=== PATIENT | female | born 1940 | race American Indian/Alaskan Native ===

== ENCOUNTER 2019-02-22 15:51 | Emergency (ER) | payer MEDICARE ==
--- OUTSIDE RECORDS SUMMARY | 2019-02-22 15:58 | XMS REPORT | Continuity of Care Document ---
:1940 External Reference #:[id number] Author Name Bronwyn Holtnadercharo, [facility] Address [address] [place] [address] Problems Active Problems Provider Date Prediabetes Onset: 05/30/2018 Mitral valve stenosis Onset: 07/19/2015 Tubular adenoma of colon Onset: 07/13/2015 Chronic obstructive lung disease Onset: 12/09/2013 Inactive Problems Initial insomnia Onset: 08/23/2018 Inactive: 08/23/2018 Anxiety disorder Onset: 08/23/2018 Inactive: 08/23/2018 Umbilical hernia Onset: 08/02/2018 Inactive: 08/02/2018 Tinea cruris Onset: 08/02/2018 Inactive: 08/02/2018 Backache Onset: 08/02/2018 Inactive: 08/02/2018 Social History Type Date Description Comments Sex Unknown ETOH Use Occasionally consumes alcohol Tobacco Use Start: Unknown End: Patient is a former smoker Unknown Recreational Drug Use Denies Drug Use Recreational Drug Use Current medical marijuana use Smoking Status Reviewed: 12/13/18 Patient is a former smoker Allergies, Adverse Reactions, Alerts Active Allergies Reaction Severity Comments Date Bactrim DS(Rash) No Reaction Indicated 10/11/2018 Acetaminophen / Hydrocodone itching Moderate 10/11/2018 Tramadol Hydrochloride Rash, diarrhea Moderate 10/11/2018 Medications Active Medications SIG Qnty Indications Ordering Date Provider Sertraline HCL 1 daily oral; take 90tabs Maurilio Varma MD 08/02/2018 50mg with 100mg tabs to Tablets equal 150mg once daily Sertraline HCL 1 daily oral 90tabs Maurilio Varma MD 04/19/2018 100mg Tablets Furosemide 1 daily Oral 90tabs Unknown 03/08/2018 40mg Tablets Metoprolol Tartrate 1 daily Oral 30tabs Unknown 03/08/2018 50mg Tablets Rosuvastatin Calcium 1 daily Oral 90tabs Unknown 03/08/2018 20mg Tablets Montelukast Sodium Oral; Take 1 90tabs Unknown 01/17/2017 10mg Tablet By Mouth Tablets Every Day Omeprazole Oral; Take 1 90caps Unknown 01/17/2017 40mg Capsule By Mouth Capsules DR Every Day Spiriva Handihaler 1 daily 30caps Unknown 05/18/2015 Inhalation 18mcg Capsules Advair Diskus 1 twice each day 1units Unknown 09/28/2014 Inhalation 250-50mcg/Dose Aerosol Multivitamins 1 daily Oral 30caps Unknown 02/09/2014 Capsules Nitrostat Oral; Place One 100tabs Unknown 06/03/2007 0.4mg Tablets Tablet Under The Sub Tongue For Chest P Ain Every Five Minutes, Maximum Three Doses, Then Call Physician. Aspirin Ec 1 qd Oral 30tabs Unknown 12/04/2005 81mg Tablets Immunizations CPT Code Status Date Vaccine Lot # [id number] Given 11/06/2018 Tdap - Boostrix/Adacel [id number] Given 10/24/2018 Flu High Dose [id number] 71165 Given 04/29/2018 Shingrix - Shingles vaccine, Herpes Zoster 42941 Given 11/28/2017 Influenza Virus Vaccine, Quadrivalent, Split, Im Use 0.25ML 93471 Given 11/28/2017 Influenza Virus Vaccine, Quadrivalent, Split, Im Use 0.25ML 90024 Given 11/28/2017 Influenza Virus Vaccine, Quadrivalent, Split, Im Use 0.25ML 86789 Given 11/28/2017 Flu < 65 years 12030 Given 11/28/2017 Influenza Virus Vaccine, Quadrivalent, Split, Preservative Free 78657 Given 11/28/2017 Flumist 12469 Given 11/28/2017 Flu High Dose 84984 Given 11/28/2017 Influenza Virus Vaccine, Split, Preserv Free, Intradermal Use 45672 Given 11/19/2017 Influenza Virus Vaccine, Split, Preserv Free, Intradermal Use 13633 Given 11/19/2017 Flu High Dose 17588 Given 11/19/2017 Flumist 93194 Given 11/19/2017 Influenza Virus Vaccine, Quadrivalent, Split, Preservative Free 29990 Given 11/19/2017 Flu < 65 years 67070 Given 11/19/2017 Influenza Virus Vaccine, Quadrivalent, Split, Im Use 0.25ML 39788 Given 11/19/2017 Influenza Virus Vaccine, Quadrivalent, Split, Im Use 0.25ML 49746 Given 11/19/2017 Influenza Virus Vaccine, Quadrivalent, Split, Im Use 0.25ML 81359 Given 11/29/2016 Influenza Virus Vaccine, Split, Preserv Free, Intradermal Use 40794 Given 11/29/2016 Flu High Dose 02658 Given 11/29/2016 Flumist 13673 Given 11/29/2016 Influenza Virus Vaccine, Quadrivalent, Split, Preservative Free 07581 Given 11/29/2016 Flu < 65 years 87098 Given 11/29/2016 Influenza Virus Vaccine, Quadrivalent, Split, Im Use 0.25ML 10806 Given 11/29/2016 Influenza Virus Vaccine, Quadrivalent, Split, Im Use 0.25ML 80095 Given 11/29/2016 Influenza Virus Vaccine, Quadrivalent, Split, Im Use 0.25ML 34536 Given 10/29/2015 Influenza Virus Vaccine, Quadrivalent, Split, Im Use 0.25ML 84504 Given 10/29/2015 Influenza Virus Vaccine, Quadrivalent, Split, Im Use 0.25ML 27959 Given 10/29/2015 Influenza Virus Vaccine, Quadrivalent, Split, Im Use 0.25ML 30312 Given 10/29/2015 Flu < 65 years 07899 Given 10/29/2015 Influenza Virus Vaccine, Quadrivalent, Split, Preservative Free 29046 Given 10/29/2015 Flumist 13440 Given 10/29/2015 Flu High Dose 68663 Given 10/29/2015 Influenza Virus Vaccine, Split, Preserv Free, Intradermal Use 12733 Given 11/16/2014 Flu High Dose 04752 Given 11/16/2014 Flumist 37584 Given 11/16/2014 Influenza Virus Vaccine, Quadrivalent, Split, Preservative Free 10417 Given 11/16/2014 Flu < 65 years 09810 Given 11/16/2014 Influenza Virus Vaccine, Quadrivalent, Split, Im Use 0.25ML 74263 Given 11/16/2014 Influenza Virus Vaccine, Quadrivalent, Split, Im Use 0.25ML 22391 Given 11/16/2014 Influenza Virus Vaccine, Quadrivalent, Split, Im Use 0.25ML 51965 Given 08/04/2014 Prevnar 13 07455 Given 06/17/2014 Influenza Virus Vaccine, Quadrivalent, Split, Im Use 0.25ML 14306 Given 11/07/2012 Influenza Virus Vaccine, Quadrivalent, Split, Im Use 0.25ML 97220 Given 11/07/2012 Influenza Virus Vaccine, Quadrivalent, Split, Im Use 0.25ML 32676 Given 11/07/2012 Influenza Virus Vaccine, Quadrivalent, Split, Im Use 0.25ML 52159 Given 11/07/2012 Flu < 65 years 98849 Given 11/07/2012 Influenza Virus Vaccine, Quadrivalent, Split, Preservative Free 14280 Given 11/07/2012 Flumist 66566 Given 11/07/2012 Flu High Dose 99077 Given 11/01/2011 Flu High Dose 21350 Given 11/01/2011 Flumist 21457 Given 11/01/2011 Influenza Virus Vaccine, Quadrivalent, Split, Preservative Free 39969 Given 11/01/2011 Flu < 65 years 17880 Given 11/01/2011 Influenza Virus Vaccine, Quadrivalent, Split, Im Use 0.25ML 43053 Given 11/01/2011 Influenza Virus Vaccine, Quadrivalent, Split, Im Use 0.25ML 99317 Given 11/01/2011 Influenza Virus Vaccine, Quadrivalent, Split, Im Use 0.25ML 46632 Given 10/27/2010 Influenza Virus Vaccine, Quadrivalent, Split, Im Use 0.25ML 56379 Given 10/27/2010 Influenza Virus Vaccine Split Virus Intramuscular Use 0.5ML 02196 Given 11/24/2009 Influenza Virus Vaccine, Quadrivalent, Split, Im Use 0.25ML 19244 Given 11/24/2009 Influenza Virus Vaccine, Split Virus, Preservative Free Im 0.5ML 86319 Given 04/21/2009 Td >=7yrs [place] [address] Given 01/11/2009 H1N1 Immunization Admin (Intramuscular,Intranasal) Inc Counseling 42416 Given 01/11/2009 Influenza Virus Vaccine, Quadrivalent, Split, Im Use 0.25ML 96801 Given 12/10/2008 Zoster Shingles Vaccine For Subcutaneous Injection 32079 Given 12/09/2008 Pneumovax - for >=2years - PPSV23 12990 Given 12/11/2007 Influenza Virus Vaccine, Quadrivalent, Split, Im Use 0.25ML 95485 Given 12/11/2007 Influenza Virus Vaccine Split Virus Intramuscular Use 0.5ML 24448 Given 12/25/2006 Influenza Virus Vaccine, Quadrivalent, Split, Im Use 0.25ML 09434 Given 12/25/2006 Influenza Virus Vaccine Split Virus Intramuscular Use 0.5ML 29983 Given 01/12/2005 Influenza Virus Vaccine Split Virus Intramuscular Use 0.5ML Vital Signs Date Vital Result Comment 01/14/2019 11:59am BP Systolic 118 mmHg BP Diastolic 62 mmHg Weight 260.00 lb Heart Rate 77 /min Body Temperature 96.5 F O2 % BldC Oximetry 93 % 12/13/2018 10:50am BP Systolic 132 mmHg BP Diastolic 86 mmHg Weight 253.00 lb Heart Rate 77 /min Body Temperature 97.8 F O2 % BldC Oximetry 92 % Results Test Acquired Date Facility Test Result H/L Range Note CFM Urine 11/06/2018 [facility] Urine, Microalbumin 30mg Microalbumin/ ( )- - Creat R Urine, Creatinine, Random 300mg/dl Microalb/CR Ratio <30mg/g Laboratory 11/06/2018 [facility] Hemoglobin A1c 6.0 % High 4.0 -5.6 1 test finding [address] (Glyco HGB) [place] [address] [phone] Order 10/31/2018 [facility] Physical Right calf Therapy strain Evaluate And Treat Xray 10/31/2018 [facility] Ultrasound Hold and [address] Extremity call [place] [address] W/Doppler RT T [phone] Lymph# 08/20/2018 N2N/CCD Import Lymph# 1.2 K/cumm 1.0 - 4.9 K/cumm Lymph% 08/20/2018 N2N/CCD Import Lymph% 21.6 % 20 - 45 % MCH 08/20/2018 N2N/CCD Import MCH 26 uugm Low 27 - 31 uugm MCHC 08/20/2018 N2N/CCD Import MCHC 32 gm/dL 32 - 36 gm/dL MCV 08/20/2018 N2N/CCD Import MCV 81 fL 81 - 99 fL [place]# 08/20/2018 N2N/CCD Import [place]# 0.4 10-9/L 0 - 1.1 10-9/L [place]% 08/20/2018 N2N/CCD Import [place]% 6.4 % 0 - 10 % Neut# 08/20/2018 N2N/CCD Import Neut# 3.9 K/cumm 2.2 - 7.6 K/cumm Platelets 08/20/2018 N2N/CCD Import Platelets 206 K/cumm 140 - 440 K/cumm Potassium 08/20/2018 N2N/CCD Import Potassium 4.2 mmol/L Protein, Total 08/20/2018 N2N/CCD Import Protein, Total 6.9 gm/dL RBC 08/20/2018 N2N/CCD Import RBC 5.2 M/cumm 4.2 - 5.4 M/cumm RDW 08/20/2018 N2N/CCD Import RDW 13.9 % 11.5 - 14.5 % Sodium 08/20/2018 N2N/CCD Import Sodium 141 mmol/L 137 - 145 mmol/L Urea Nitrogen 08/20/2018 N2N/CCD Import Urea Nitrogen 13 mg/dL WBC 08/20/2018 N2N/CCD Import WBC 5.6 K/cumm 4.8 - 10.8 K/cumm Alk Phos 08/20/2018 N2N/CCD Import Alk Phos 123 IU/L Albumin 08/20/2018 N2N/CCD Import Albumin 4.3 gm/dL Alt 08/20/2018 N2N/CCD Import Alt 47 IU/L Anion Gap 08/20/2018 N2N/CCD Import Anion Gap 16 _ Ast 08/20/2018 N2N/CCD Import Ast 38 IU/L Baso# 08/20/2018 N2N/CCD Import Baso# 0.1 K/cumm 0 - 0.2 K/cumm Baso% 08/20/2018 N2N/CCD Import Baso% 0.9 % 0 - 2 % Bilirubin 08/20/2018 N2N/CCD Import Bilirubin 0.3 mg/dL 0.2 - 1.3 Total Total mg/dL Calcium 08/20/2018 N2N/CCD Import Calcium 9.6 mg/dL Chloride 08/20/2018 N2N/CCD Import Chloride 100 mmol/L 98 - 107 mmol/L Co2 08/20/2018 N2N/CCD Import Co2 25 mmol/L 22 - 31 mmol/L Creatinine 08/20/2018 N2N/CCD Import Creatinine 0.93 mg/dL CRP 08/20/2018 N2N/CCD Import CRP 3 _ Eosin# 08/20/2018 N2N/CCD Import Eosin# 0.1 K/cumm 0 - .5 K/cumm Eosin% 08/20/2018 N2N/CCD Import Eosin% 1.2 % 0 - 5 % GFR Afr Amer 08/20/2018 N2N/CCD Import GFR Afr Amer 69 _ 60 - 150 GFR Non Afr 08/20/2018 N2N/CCD Import GFR Non Afr 60 _ 60 - 150 Amer Amer Glucose 08/20/2018 N2N/CCD Import Glucose 97 mg/dL 60 - 100 MG/DL Hematocrit 08/20/2018 N2N/CCD Import Hematocrit 42 % 35 - 42 % Hemoglobin 08/20/2018 N2N/CCD Import Hemoglobin 13.4 gm/dl 1 Therapeutic target for the treatment of diabetes mellitus patients is <7% HBA1C, and in selective patients <6.0%. Please refer to [place] [employer] diabetic care guidelines for further information. Procedures Date Code Description Status 11/06/2018 32791 Brief Emotional/Behav Assessment W/ Scoring Doc Per Completed Standard Inst 08/23/2018 22779 Brief Emotional/Behav Assessment W/ Scoring Doc Per Completed Standard Inst Medical Devices Description No Information Available Encounters Type Date Location Provider Dx Diagnosis Office Visit 01/14/2019 11:45a KATHRYN Charlton R63.5 Abnormal weight gain R05 Cough Office Visit 12/13/2018 10:45a Rosy Varma MD M54.5 Low back pain R73.03 Prediabetes Office Visit 11/06/2018 2:15p ELLIS Varma MD Z00.00 Encntr for general adult medical exam w/o abnormal findings Z68.42 Body mass index (BMI) 45.0-49.9, adult I10 Essential (primary) hypertension Z23 Encounter for immunization Z13.31 Encounter for screening for depression R73.03 Prediabetes Office Visit 10/31/2018 10:30a KATHRYN Mina M79.604 Pain in right leg Office Visit 10/24/2018 11:30a KATHRYN Charlton M79.661 Pain in right lower leg Z23 Encounter for immunization Assessments Date Code Description Provider 01/14/2019 R63.5 Abnormal weight gain Bronwyn Winkler, [facility] 01/14/2019 R05 Cough Bronwyn JonathonnadercharoKATHRYN 12/13/2018 M54.5 Low back pain Maurilio Varma MD 12/13/2018 R73.03 Prediabetes Maurilio Varma MD 11/06/2018 Z00.00 Encounter for general adult medical examination Maurilio Varma MD without abnormal findings 11/06/2018 Z68.42 Body mass index (BMI) 45.0-49.9, adult Maurilio Varma MD 11/06/2018 I10 Essential (primary) hypertension Maurilio Varma MD 11/06/2018 Z23 Encounter for immunization Maurilio Varma MD 11/06/2018 Z13.31 Encounter for screening for depression Maurilio Varma MD 11/06/2018 R73.03 Prediabetes Maurilio Varma MD 10/31/2018 M79.604 Pain in right leg Bronwyn Winkler, [facility] 10/24/2018 M79.661 Pain in right lower leg Bronwyn Peterson, [facility] 10/24/2018 Z23 Encounter for immunization Bronwyn PetersonKATHRYN Plan of Treatment 01/14/2019 - Bronwyn Winkler, FNPR63.5 Abnormal weight gainComments:Lungs clear. No sign of fluid overload today. Due to weight gain disc. 4 days of 40 mg lasix 2 x daily then return to daily. Reviewed SE. Disc. following up in office in new, worsening symptoms or no improvement with above. Instructed to call Dr. Linn office and update them as well.R05 CoughComments:Use rescue inhaler 4 x daily as needed. Functional Status Description No Information Available Mental Status Description No Information Available Referrals Refer to Reason for Referral Status Appt Date Patient's, Choice Prediabetes classes Created Patient's, Choice Right popiteal cyst acute with pain. Found on US. Sent
--- NOTE | 2019-02-22 16:37 | ED ---
Head Injury - HPI Summary HPI Summary: 78-year-old female presents with head injuries today. She states that she slipped on ice and fell backwards on her head. No loss consciousness. She saw stars right afterwards. Denies any nausea or vomiting. She states her headache has been increasing. She is not on any blood thinners. Is on daily aspirin. She has a history of chronic neck and back issues. Denies any neck pain. No change in her chronic back pain. States she only landed on her head. no other injury. this was a mechanical fall. denies any chest pain or SOB. - History Of Current Complaint Chief Complaint: EDHeadInjury Stated Complaint: HEAD INJ FROM FALL PER PT Time Seen by Provider: 02/22/19 16:14 Pain Intensity: 4 - Allergies/Home Medications Allergies/Adverse Reactions: Allergies Allergy/AdvReac Type Severity Reaction Status Date / Time MS Sulfa Drugs [Sulfa Drugs] Allergy Intermediate Unknown Verified 10/26/14 14: 35 Reaction Details MS Codeine [Codeine] Allergy Anxiety Verified 10/26/14 14:35 MS Hydrocodone [Hydrocodone] Allergy Insomnia Verified 10/26/14 14:35 MS Tramadol [Tramadol] Allergy Itching Verified 10/26/14 14:35 PMH/Surg Hx/FS Hx/Imm Hx Endocrine/Hematology History: Denies: Hx Anticoagulant Therapy, Hx Diabetes, Hx Thyroid Disease Cardiovascular History: Reports: Hx Hypertension, Other Cardiovascular Problems/ Disorders - Hx low BP Denies: Hx Hypercholesterolemia, Hx Pacemaker/ICD, Hx Peripheral Vascular Disease Respiratory History: Reports: Hx Asthma - PRN INHALER, Hx Chronic Bronchitis, Hx Chronic Obstructive Pulmonary Disease (COPD), Hx Sleep Apnea - current CPAP user, improving compliance, Other Respiratory Problems/Disorders - Pt desats with exertion CPAP at night and supplemental O2 GI History: Reports: Other GI Disorders - umbilical hernia Denies: Hx Cirrhosis History: Denies: Hx Renal Disease Musculoskeletal History: Reports: Hx Orthopedic Injury - torn (right) ACL, (left ) thumb fx d/t fall 02/2013, Other Musculoskeletal History - Osteoarthritis, L shoulder replacement 2008 Denies: Hx Arthritis, Hx Rheumatoid Arthritis, Hx Osteoporosis Sensory History: Denies: Hx Cataracts, Hx Contacts or Glasses, Hx Glaucoma, Hx Hearing Aid Opthamlomology History: Denies: Hx Cataracts, Hx Contacts or Glasses, Hx Glaucoma Neurological History: Reports: Other Neuro Impairments/Disorders - PAIN CLINIC PATIENT Denies: Hx Headaches, Hx Seizures, Hx Transient Ischemic Attacks (TIA) Psychiatric History: Denies: Hx Anxiety, Hx Depression, Hx Panic Disorder - Surgical History Surgery Procedure, Year, and Place: CARDIAC STENTS 09/2005 (CARD IN COPY). CATARACTS. LEFT SHOULDER REPLACEMENT 2010. LUMBAR LAMINECTOMY AND FUSION L4- L5 2009 Infectious Disease History: No Infectious Disease History: Denies: Hx Hepatitis, Traveled Outside the [place] in Last 30 Days - Family History Known Family History: Positive: Non-Contributory - Social History Alcohol Use: Occasionally Alcohol Amount: 2-3 x weekly 1-2 per week Hx Substance Use: No Substance Use Type: Reports: None Hx Tobacco Use: No Smoking Status (MU): Former Smoker Type: Cigarettes Have You Smoked in the Last Year: No Review of Systems Negative: Fever Negative: Chest Pain Negative: Shortness Of Breath Positive: Headache All Other Systems Reviewed And Are Negative: Yes Physical Exam Triage Information Reviewed: Yes Vital Signs On Initial Exam: Initial Vitals Temp Pulse Resp BP Pulse Ox 98.2 F 72 18 114/73 93 02/22/19 15:53 02/22/19 15:53 02/22/19 15:53 02/22/19 15:53 02/22/19 15:53 Vital Signs Reviewed: Yes Appearance: Positive: Well-Appearing Skin: Positive: Warm, Dry Head/Face: Positive: Normal Head/Face Inspection, Other - contusion noted to back of head Eyes: Positive: Normal, EOMI, BISI, Conjunctiva Clear ENT: Positive: Pharynx normal, TMs normal Neck: Positive: Other: - nontender neck, full ROM of neck Respiratory/Lung Sounds: Positive: Clear to Auscultation, Breath Sounds Present Cardiovascular: Positive: Normal, RRR Abdomen Description: Positive: Nontender, Soft Bowel Sounds: Positive: Present Musculoskeletal: Positive: Normal Neurological: Positive: Normal Psychiatric: Positive: Normal Procedures - Sedation Patient Received Moderate/Deep Sedation with Procedure: No Diagnostics - Vital Signs Vital Signs Temp Pulse Resp BP Pulse Ox 02/22/19 15:53 98.2 F 72 18 114/73 93 - Laboratory Lab Statement: Any lab studies that have been ordered have been reviewed, and results considered in the medical decision making process. - CT brain CT Interpretation Completed By: Radiologist Summary of CT Findings: IMPRESSION: 1. NO EVIDENCE FOR ACUTE INTRACRANIAL ABNORMALITY.. 2. HEMATOMA IN THE SCALP IN THE POSTERIOR RIGHT PARIETAL REGION, NO FRACTURE IS SEEN. Head Injury Course/Dx Course Of Treatment: 78-year-old female presents with head injuries today. She states that she slipped on ice and fell backwards on her head. No loss consciousness. She saw stars right afterwards. Denies any nausea or vomiting. She states her headache has been increasing. She is not on any blood thinners. Is on daily aspirin. She has a history of chronic neck and back issues. Denies any neck pain. No change in her chronic back pain. States she only landed on her head. no other injury. this was a mechanical fall. denies any chest pain or SOB. On exam has normal neuro exam. has contusion noted to head. CT of the brain shows hematoma. no fracture. gave head injury precautions. will have follow up with primary. patient understand and agrees with plan. - Diagnoses Differential Diagnosis/HQI/PQRI: Concussion Without LOC, Contusion, Intracranial Bleed Provider Diagnoses: Fall, Head injury, Hematoma of scalp Discharge ED - Sign-Out/Discharge Documenting (check all that apply): Patient Departure - Discharge Plan Condition: Good Disposition: HOME Patient Education Materials: Head Injury (ED) Referrals: Maurilio Varma MD [Primary Care Provider] - Additional Instructions: Place ice on area as needed Take Tylenol for headache every 6 hours Modify activities as tolerated Follow up with primary within 5 days Return to ED if develop any new or worsening symptoms - Billing Disposition and Condition Condition: GOOD Disposition: Home - Attestation Statements Provider Attestation: AP view do not see
[2019-02-22] MEDS ORDERED: Acetaminophen TAB* 325 MG PO ONE (17:01)
[2019-02-22 18:01] VITALS: BP 152/84
== END 2019-02-22 17:58 | disposition home or self-care (01) ==
LOC: ED 15:51
DX: S09.90XA Unspecified injury of head, initial encounter (principal); S00.03XA Contusion of scalp, initial encounter; R51 Headache; W19.XXXA Unspecified fall, initial encounter; Y92.9 Unspecified place or not applicable
CPT/HCPCS: 70450; 99282; A9270-GY

== ENCOUNTER 2020-03-25 11:54 | Inpatient (IN) ==
[2020-03-25] MEDS ORDERED: NS 0.9% 1000 ml BAG 1,000 ML IV ONE (13:55)
[2020-03-25 14:46] LABS: ABS Lymphocytes 0.4 10^3/ul (1.0-4.8); ABS Monocytes 0.5 10^3/ul (0-0.8); ABS Neutrophils 13.5 10^3/ul (1.5-7.7); Hematocrit 46 % (35-47); Hemoglobin 15.7 g/dL (12.0-16.0); Lymphocyte % 2.8 %; Mean Corpuscular HGB Conc 34 g/dL (31-36); Mean Corpuscular Hemoglobin 28 pg (27-31); Mean Corpuscular Volume 82 fL (80-97); Mean Platelet Volume 7.3 fL (7.4-10.4); Platelet Count 158 10^3/uL (150-450); Red Blood Count 5.59 10^6 /uL (3.70-4.87); Red Cell Distribution Width 14 % (10-15); White Blood Count 14.4 10^3/uL (3.5-10.8)
[2020-03-25] MEDS ORDERED: Midazolam 2 mg/2 ml VIAL 1 mg/ml 2 ml VIAL (2 mg) ONE (14:57)
[2020-03-25] MEDS ORDERED: fentaNYL 100 mcg/2 ml 50 MCG/ML VIAL ONE (14:58)
[2020-03-25] MEDS ORDERED: Propofol 10 MG/ML 20 ML BTL ONE (15:03)
[2020-03-25] MEDS ORDERED: Lidocaine 2% PF 5 ML VIAL ONE ×2 (15:03→17:52)
[2020-03-25] MEDS ORDERED: Succinylcholine 200 mg VIAL 20 mg/ml 10 ml VIAL (200 mg) ONE (15:03)
[2020-03-25 15:06] LABS: Troponin I 0.03 ng/mL (<0.03)
[2020-03-25] MEDS ORDERED: cefTRIAXone 1 gm/50 mL NS BAG 1 GM/50 ML BAG IV ONE (15:08)
[2020-03-25] MEDS ORDERED: metroNIDAZOLE IV 500 MG/100ML 500 MG/100 ML BAG IVPB ONE (15:08)
[2020-03-25 15:14] LABS: ALT 39 U/L (7-52); AST 26 U/L (13-39); Albumin 4.4 g/dL (3.2-5.2); Albumin/Globulin Ratio 1.5 (1-3); Alkaline Phosphatase 86 U/L (34-104); Anion Gap 11 mmol/L (2-11); BUN/Creatinine Ratio 18.3 (8-20); Blood Urea Nitrogen 19 mg/dL (6-24); CO2 Carbon Dioxide 27 mmol/L (22-32); Calcium 9.5 mg/dL (8.6-10.3); Chloride 104 mmol/L (101-111); EGFR Non-African American 51.3 (>60); Glucose 166 mg/dL (70-100); Potassium 4.1 mmol/L (3.5-5.0); Sodium 142 mmol/L (135-145); Total Protein 7.4 g/dL (6.4-8.9)
[2020-03-25] MEDS ORDERED: Etomidate 20 mg/10 ml 2 MG/ML 10 ml VIAL ONE (15:24)
[2020-03-25] MEDS ORDERED: cefTRIAXone 1 gm/50 mL NS BAG 1 GM/50 ML BAG ONE (15:43)
[2020-03-25] MEDS ORDERED: Dexmedetomidine 200 mcg/2 ml 2 ml VIAL (200 mcg) ONE (16:04)
[2020-03-25] MEDS ORDERED: Dexamethasone IV 4 MG/ML VIAL 1 ml VIAL ONE (16:21)
[2020-03-25] MEDS ORDERED: Ondansetron 4 mg VIAL 2 MG/ML 2 ml VIAL ONE (16:21)
[2020-03-25] MEDS ORDERED: Rocuronium 50 mg VIAL 10 mg/ml 5 ml VIAL (50 mg) ONE (16:24)
[2020-03-25] MEDS ORDERED: NS 0.9% 1000 ml BAG 1,000 ML IV SCH (16:30)
[2020-03-25] MEDS ORDERED: Phenylephrine 40 mcg/mL 10mL (400mcg) SYRINGE ONE ×2 (16:32→16:54)
[2020-03-25] MEDS ORDERED: Phenylephrine IV 10 MG/ML 1 ml VIAL ONE (16:54)
[2020-03-25] MEDS ORDERED: Pantoprazole VIAL 40 MG VIAL IV SCH (17:00)
[2020-03-25] MEDS ORDERED: EPHEDrine (Pressors) 50 MG/ML VIAL ONE (17:04)
[2020-03-25] MEDS ORDERED: Hydrocortisone INJ 250 MG VIAL IV ONE (17:59)
[2020-03-25] MEDS ORDERED: Phenylephrine IV 50 MG in NS 0.9% 250 ml 245 ML IV SCH (19:00)
[2020-03-25] MEDS ORDERED: Albuterol/Ipratropium NEB.SOL (2.5/0.5 MG) 3 ML NEB.SOLN INH SCH (19:00)
[2020-03-25] MEDS: Enoxaparin 40 MG/0.4 ML SYR SUBCUT SCH (20:25)
[2020-03-25] MEDS: Albuterol/Ipratropium NEB.SOL (2.5/0.5 MG) 3 ML NEB.SOLN INH SCH (20:31)
[2020-03-25] MEDS: Azithromycin 500 mg/250 ml NS 500 MG/250 ML BAG IVPB SCH (20:59)
[2020-03-25] MEDS: Pantoprazole VIAL 40 MG VIAL IV SCH (21:34)
[2020-03-25] MEDS: Mometasone/Formoter 100/5 MDI INH SCH (21:36)
[2020-03-26] MEDS: Albuterol/Ipratropium NEB.SOL (2.5/0.5 MG) 3 ML NEB.SOLN INH SCH ×4 (03:23→19:33)
[2020-03-26 04:26] LABS: Calcium 8.3 mg/dL (8.6-10.3); Magnesium 1.8 mg/dL (1.9-2.7)
[2020-03-26 04:31] LABS: BUN/Creatinine Ratio 21.3 (8-20); EGFR African American 83.9 (>60); EGFR Non-African American 69.4 (>60); Phosphorus 2.7 mg/dL (2.5-5.0)
[2020-03-26] MEDS ORDERED: Magnesium Sulfate 2 gm BAG 2 GM/50 ML BAG IVPB ONE ×2 (04:32→06:34)
[2020-03-26] MEDS: Hydrocortisone INJ 100 MG/2ML 2 ML VIAL IV SCH ×2 (05:35→14:31)
[2020-03-26 05:58] LABS: ABS Lymphocytes 0.3 10^3/ul (1.0-4.8); ABS Monocytes 0.1 10^3/ul (0-0.8); ABS Neutrophils 12.4 10^3/ul (1.5-7.7); Hematocrit 39 % (35-47); Hemoglobin 13.2 g/dL (12.0-16.0); Lymphocyte % 2.7 %; Mean Corpuscular HGB Conc 34 g/dL (31-36); Mean Corpuscular Hemoglobin 28 pg (27-31); Mean Corpuscular Volume 83 fL (80-97); Mean Platelet Volume 7.2 fL (7.4-10.4); Platelet Count 147 10^3/uL (150-450); Red Blood Count 4.66 10^6 /uL (3.70-4.87); Red Cell Distribution Width 14 % (10-15); White Blood Count 12.9 10^3/uL (3.5-10.8)
[2020-03-26 06:36] LABS: BUN/Creatinine Ratio 20.8 (8-20); Calcium 8.3 mg/dL (8.6-10.3); EGFR African American 87.7 (>60); EGFR Non-African American 72.5 (>60); Magnesium 1.9 mg/dL (1.9-2.7); Phosphorus 2.5 mg/dL (2.5-5.0); Potassium 3.7 mmol/L (3.5-5.0)
[2020-03-26] MEDS: SPIRIVA Respimat (tiotropium) 2.5 mcg/inh Inhaler INH SCH (07:08)
[2020-03-26] MEDS: Mometasone/Formoter 100/5 MDI INH SCH ×2 (07:08→19:34)
[2020-03-26] MEDS ORDERED: Potassium Chlor 20 meq TAB.ER PO ONE (08:13)
[2020-03-26] MEDS: Vitamin THERAPEUTIC TAB PO SCH (08:57)
[2020-03-26] MEDS: Pantoprazole VIAL 40 MG VIAL IV SCH ×2 (08:57→22:35)
[2020-03-26] MEDS ORDERED: FLUTICASONE/UMECLIDIN/VILANTER 1 PUFF MDI INH SCH (09:00)
[2020-03-26] MEDS ORDERED: Furosemide 20 mg/2 ml IV VIAL IV SLOW PU ONE ×2 (10:39→14:21)
[2020-03-26 11:25] LABS: INR 1.2 (0.82-1.09)
[2020-03-26] MEDS ORDERED: methylPREDNISolone SOD 40 mg/ml 1 ml VIAL IV SCH (16:00)
[2020-03-26] MEDS: cefTRIAXone 1 gm/50 mL NS BAG 1 GM/50 ML BAG IVPB SCH (18:27)
[2020-03-26] MEDS: Enoxaparin 40 MG/0.4 ML SYR SUBCUT SCH (18:27)
[2020-03-26] MEDS: Azithromycin 500 mg/250 ml NS 500 MG/250 ML BAG IVPB SCH (22:34)
[2020-03-26] MEDS: methylPREDNISolone SOD 40 mg/ml 1 ml VIAL IV SCH (22:35)
[2020-03-27] MEDS: Albuterol/Ipratropium NEB.SOL (2.5/0.5 MG) 3 ML NEB.SOLN INH SCH ×4 (00:47→20:12)
[2020-03-27 06:20] LABS: Hematocrit 37 % (35-47); Hemoglobin 12.6 g/dL (12.0-16.0); Mean Corpuscular HGB Conc 34 g/dL (31-36); Mean Corpuscular Hemoglobin 29 pg (27-31); Mean Corpuscular Volume 84 fL (80-97); Mean Platelet Volume 7.5 fL (7.4-10.4); Platelet Count 156 10^3/uL (150-450); Red Blood Count 4.42 10^6 /uL (3.70-4.87); Red Cell Distribution Width 14 % (10-15); White Blood Count 9.3 10^3/uL (3.5-10.8)
[2020-03-27 06:32] LABS: BUN/Creatinine Ratio 24.4 (8-20); Calcium 8.6 mg/dL (8.6-10.3); EGFR African American 81.6 (>60); EGFR Non-African American 67.4 (>60); Magnesium 2.3 mg/dL (1.9-2.7); Potassium 3.8 mmol/L (3.5-5.0)
[2020-03-27] MEDS: SPIRIVA Respimat (tiotropium) 2.5 mcg/inh Inhaler INH SCH (08:51)
[2020-03-27] MEDS: Mometasone/Formoter 100/5 MDI INH SCH ×2 (08:51→20:12)
[2020-03-27] MEDS: Vitamin THERAPEUTIC TAB PO SCH (09:07)
[2020-03-27] MEDS: methylPREDNISolone SOD 40 mg/ml 1 ml VIAL IV SCH ×2 (09:10→21:19)
[2020-03-27] MEDS: Pantoprazole VIAL 40 MG VIAL IV SCH ×2 (09:10→21:22)
[2020-03-27] MEDS: cefTRIAXone 1 gm/50 mL NS BAG 1 GM/50 ML BAG IVPB SCH (16:45)
[2020-03-27] MEDS: Enoxaparin 40 MG/0.4 ML SYR SUBCUT SCH (16:45)
[2020-03-27] MEDS: Azithromycin 500 mg/250 ml NS 500 MG/250 ML BAG IVPB SCH (21:24)
[2020-03-28] MEDS: Albuterol/Ipratropium NEB.SOL (2.5/0.5 MG) 3 ML NEB.SOLN INH SCH ×4 (00:42→19:40)
[2020-03-28] MEDS ORDERED: Senna TAB 8.6 mg TAB PO PRN (02:02)
[2020-03-28] MEDS ORDERED: Polyethylene Glycol 3350 17 GM PACKET PO PRN (02:02)
[2020-03-28 06:39] LABS: Hematocrit 39 % (35-47); Hemoglobin 12.5 g/dL (12.0-16.0); Mean Corpuscular HGB Conc 33 g/dL (31-36); Mean Corpuscular Hemoglobin 28 pg (27-31); Mean Corpuscular Volume 87 fL (80-97); Mean Platelet Volume 7.8 fL (7.4-10.4); Platelet Count 150 10^3/uL (150-450); Red Blood Count 4.42 10^6 /uL (3.70-4.87); Red Cell Distribution Width 15 % (10-15); White Blood Count 7.2 10^3/uL (3.5-10.8)
[2020-03-28 06:46] LABS: BUN/Creatinine Ratio 28.2 (8-20); Calcium 8.5 mg/dL (8.6-10.3); EGFR African American 86.4 (>60); EGFR Non-African American 71.4 (>60); Potassium 4.1 mmol/L (3.5-5.0)
[2020-03-28] MEDS: Benzocaine/Menthol LOZ PO PRN ×2 (07:22→15:42)
[2020-03-28] MEDS: SPIRIVA Respimat (tiotropium) 2.5 mcg/inh Inhaler INH SCH (07:34)
[2020-03-28] MEDS: Mometasone/Formoter 100/5 MDI INH SCH ×2 (07:34→19:40)
[2020-03-28] MEDS: Vitamin THERAPEUTIC TAB PO SCH (08:54)
[2020-03-28] MEDS: Pantoprazole VIAL 40 MG VIAL IV SCH (08:54)
[2020-03-28] MEDS: Magnesium Hydroxide LIQ 30 ML UDC PO SCH ×2 (10:37→20:52)
[2020-03-28] MEDS: methylPREDNISolone SOD 40 mg/ml 1 ml VIAL IV SCH ×2 (10:37→20:54)
[2020-03-28] MEDS: cefTRIAXone 1 gm/50 mL NS BAG 1 GM/50 ML BAG IVPB SCH (15:42)
[2020-03-28] MEDS: Enoxaparin 40 MG/0.4 ML SYR SUBCUT SCH (17:15)
[2020-03-29] MEDS: Albuterol/Ipratropium NEB.SOL (2.5/0.5 MG) 3 ML NEB.SOLN INH SCH ×2 (01:13→08:50)
[2020-03-29] MEDS: SPIRIVA Respimat (tiotropium) 2.5 mcg/inh Inhaler INH SCH (07:40)
[2020-03-29] MEDS: Mometasone/Formoter 100/5 MDI INH SCH (07:40)
[2020-03-29] MEDS ORDERED: Albuterol/Ipratropium NEB.SOL (2.5/0.5 MG) 3 ML NEB.SOLN INH PRN (07:46)
[2020-03-29 08:12] LABS: Calcium 8.6 mg/dL (8.6-10.3); Potassium 3.9 mmol/L (3.5-5.0)
[2020-03-29 08:18] LABS: BUN/Creatinine Ratio 23.8 (8-20); EGFR African American 83.9 (>60); EGFR Non-African American 69.4 (>60)
[2020-03-29 08:19] LABS: ABS Lymphocytes 0.6 10^3/ul (1.0-4.8); ABS Monocytes 0.4 10^3/ul (0-0.8); ABS Neutrophils 5.8 10^3/ul (1.5-7.7); Hematocrit 37 % (35-47); Hemoglobin 12.8 g/dL (12.0-16.0); Lymphocyte % 8.8 %; Mean Corpuscular HGB Conc 35 g/dL (31-36); Mean Corpuscular Hemoglobin 29 pg (27-31); Mean Corpuscular Volume 83 fL (80-97); Mean Platelet Volume 7.3 fL (7.4-10.4); Nucleated Red Blood Cells % 0.1; Platelet Count 170 10^3/uL (150-450); Red Blood Count 4.46 10^6 /uL (3.70-4.87); Red Cell Distribution Width 14 % (10-15); White Blood Count 6.8 10^3/uL (3.5-10.8)
[2020-03-29] MEDS: Magnesium Hydroxide LIQ 30 ML UDC PO SCH (09:03)
[2020-03-29] MEDS: methylPREDNISolone SOD 40 mg/ml 1 ml VIAL IV SCH ×2 (09:03→09:46)
[2020-03-29] MEDS: Vitamin THERAPEUTIC TAB PO SCH (09:03)
[2020-03-29 11:18] VITALS: BP 136/79
== END 2020-03-29 15:53 | disposition home or self-care (01) | DRG 393 ==
LOC: ED 11:54 → ICU 18:27 → SSU 03-26 16:41
PROVIDERS: ADMIT Internal Medicine; ATTEND Internal Medicine
PROC: O.GIEGD (2020-03-25 14:40)

== ENCOUNTER 2021-09-20 13:48 | Inpatient (IN) ==
[2021-09-20] MEDS ORDERED: fentaNYL 100 mcg/2 ml 50 MCG/ML VIAL IV SLOW PU PRN (15:47)
[2021-09-20] MEDS ORDERED: fentaNYL 100 mcg/2 ml 50 MCG/ML VIAL ONE (15:52)
[2021-09-20 18:58] LABS: ABS Lymphocytes 0.6 10^3/ul (1.0-4.8); ABS Monocytes 0.5 10^3/ul (0-0.8); ABS Neutrophils 6.6 10^3/ul (1.5-7.7); Eosinophil % 0.1 %; Hematocrit 37 % (35-47); Hemoglobin 12.4 g/dL (12.0-16.0); Lymphocyte % 8.2 %; Mean Corpuscular HGB Conc 34 g/dL (31-36); Mean Corpuscular Hemoglobin 27 pg (27-31); Mean Corpuscular Volume 81 fL (80-97); Platelet Count 145 10^3/uL (150-450); Red Blood Count 4.54 10^6 /uL (3.70-4.87); Red Cell Distribution Width 15 % (10-15); White Blood Count 7.8 10^3/uL (3.5-10.8)
[2021-09-20] MEDS ORDERED: Albuterol HFA INHALER 8 gm MDI INH PRN (19:19)
[2021-09-20] MEDS ORDERED: Ondansetron 4 mg VIAL 2 MG/ML 2 ml VIAL IV PRN (19:24)
[2021-09-20 19:45] LABS: Albumin 3.7 g/dL (3.2-5.2); Albumin/Globulin Ratio 1.6 (1-3); Calcium 8.7 mg/dL (8.6-10.3); Globulin 2.3 g/dL (2-4); Potassium 4.2 mmol/L (3.5-5.0); Total Bilirubin 0.8 mg/dL (0.2-1.0); eGFR CKD-EPI 69.6 (>60)
[2021-09-20] MEDS ORDERED: D5W 1/2 NS 1000 ml BAG 1,000 ML IV SCH (20:00)
[2021-09-20] MEDS ORDERED: Zosyn 3.375 GM IV - ED ONCE IV ONE (20:00)
[2021-09-20] MEDS: Heparin 5000 UNITS/ML 1 mL VIAL SUBCUT SCH (21:14)
[2021-09-20] MEDS: Pantoprazole VIAL 40 MG VIAL IV SCH (21:14)
[2021-09-21] MEDS: Piperacillin/Tazobac ADVAN 3.375 GM in NS 0.9% 100 ml BAG 100 ML IV SCH ×3 (01:19→17:45)
[2021-09-21 05:16] LABS: ABS Lymphocytes 0.8 10^3/ul (1.0-4.8); ABS Monocytes 0.5 10^3/ul (0-0.8); ABS Neutrophils 5.5 10^3/ul (1.5-7.7); Eosinophil % 0.6 %; Hematocrit 35 % (35-47); Hemoglobin 11.9 g/dL (12.0-16.0); Lymphocyte % 11.2 %; Mean Corpuscular HGB Conc 34 g/dL (31-36); Mean Corpuscular Hemoglobin 27 pg (27-31); Mean Corpuscular Volume 81 fL (80-97); Mean Platelet Volume 7.1 fL (7.4-10.4); Nucleated Red Blood Cells % 0.2; Platelet Count 141 10^3/uL (150-450); Red Blood Count 4.34 10^6 /uL (3.70-4.87); Red Cell Distribution Width 15 % (10-15); White Blood Count 6.8 10^3/uL (3.5-10.8)
[2021-09-21 05:47] LABS: Calcium 8.5 mg/dL (8.6-10.3); eGFR CKD-EPI 80.9 (>60)
[2021-09-21] MEDS: Heparin 5000 UNITS/ML 1 mL VIAL SUBCUT SCH ×3 (05:51→21:30)
[2021-09-21] MEDS: Aspirin EC 81 mg TAB.EC (enteric coated) PO SCH (09:14)
[2021-09-21] MEDS: FLUTICAS/UMECLI/VILANT 100-62.5-25 MDI (NF) INH SCH (09:57)
[2021-09-21] MEDS ORDERED: Morphine 2 MG/ML SYRINGE IV PRN (14:05)
[2021-09-21] MEDS: Pantoprazole VIAL 40 MG VIAL IV SCH (19:51)
[2021-09-22] MEDS: Piperacillin/Tazobac ADVAN 3.375 GM in NS 0.9% 100 ml BAG 100 ML IV SCH ×3 (00:57→17:48)
[2021-09-22] MEDS: Heparin 5000 UNITS/ML 1 mL VIAL SUBCUT SCH ×3 (05:50→21:45)
[2021-09-22] MEDS ORDERED: Magnesium Hydroxide LIQ 30 ML UDC PO PRN (07:37)
[2021-09-22] MEDS ORDERED: Polyethylene Glycol 3350 17 GM PACKET PO PRN (07:37)
[2021-09-22] MEDS ORDERED: Senna TAB 8.6 mg TAB PO PRN (07:37)
[2021-09-22] MEDS: FLUTICAS/UMECLI/VILANT 100-62.5-25 MDI (NF) INH SCH (07:52)
[2021-09-22] MEDS: Magnesium Hydroxide LIQ 30 ML UDC PO SCH ×2 (09:07→20:51)
[2021-09-22] MEDS: Aspirin EC 81 mg TAB.EC (enteric coated) PO SCH (09:08)
[2021-09-22 09:41] LABS: Calcium 8.6 mg/dL (8.6-10.3); Potassium 4.1 mmol/L (3.5-5.0); eGFR CKD-EPI 79.7 (>60)
[2021-09-22 11:05] LABS: C Reactive Protein 175.63 mg/L (<8.01)
[2021-09-22] MEDS ORDERED: Bupivacaine 0.25% SDV 30 ML INJ ONE (20:00)
[2021-09-22] MEDS ORDERED: methylPREDNISolone ACETATE 40 mg/ml 1 ml VIAL **not IV IM ONE (20:00)
[2021-09-22 20:01] LABS: Urine Appearance Clear; Urine Bilirubin 1+ (Small) (Negative); Urine Blood Negative (Negative); Urine Color Yellow; Urine Glucose Negative (Negative); Urine Ketones Trace (Negative); Urine Nitrite Negative (Negative); Urine Protein Negative (Negative); Urine Specific Gravity 1.025 (1.005-1.030); Urine Urobilinogen 1.0 (Negative) (Negative); Urine pH 5.5 (5.0-9.0)
[2021-09-22 20:18] LABS: Urine Bacteria 1+ (Absent); Urine Red Blood Cell Trace(0-2/hpf) (Absent); Urine Squamous Epithelial Cell Present (Absent); Urine White Blood Cell 2+(11-20/hpf) (Absent)
[2021-09-22] MEDS: Pantoprazole VIAL 40 MG VIAL IV SCH (20:34)
[2021-09-22] MEDS: Fluorometholone 0.1% OPTH.SUS 5 ML BTL RIGHT EYE SCH (21:45)
[2021-09-23] MEDS: Piperacillin/Tazobac ADVAN 3.375 GM in NS 0.9% 100 ml BAG 100 ML IV SCH ×3 (01:31→16:00)
[2021-09-23] MEDS: Oral Rinse (Biotene)(NF) 237 ML or 473 ML ORAL RINSE BTL MT SCH ×2 (01:33→06:27)
[2021-09-23] MEDS: Heparin 5000 UNITS/ML 1 mL VIAL SUBCUT SCH ×3 (06:21→21:36)
[2021-09-23] MEDS: FLUTICAS/UMECLI/VILANT 100-62.5-25 MDI (NF) INH SCH (07:35)
[2021-09-23] MEDS: Magnesium Hydroxide LIQ 30 ML UDC PO SCH ×3 (10:04→23:38)
[2021-09-23] MEDS: Aspirin EC 81 mg TAB.EC (enteric coated) PO SCH (10:06)
[2021-09-23] MEDS: Fluorometholone 0.1% OPTH.SUS 5 ML BTL RIGHT EYE SCH ×2 (11:01→21:36)
[2021-09-23] MEDS: Pantoprazole VIAL 40 MG VIAL IV SCH (21:37)
[2021-09-24] MEDS: Piperacillin/Tazobac ADVAN 3.375 GM in NS 0.9% 100 ml BAG 100 ML IV SCH ×2 (01:39→11:09)
[2021-09-24] MEDS: FLUTICAS/UMECLI/VILANT 100-62.5-25 MDI (NF) INH SCH (07:25)
[2021-09-24] MEDS: Aspirin EC 81 mg TAB.EC (enteric coated) PO SCH (09:45)
[2021-09-24] MEDS: Heparin 5000 UNITS/ML 1 mL VIAL SUBCUT SCH ×3 (09:55→20:53)
[2021-09-24] MEDS: Fluorometholone 0.1% OPTH.SUS 5 ML BTL RIGHT EYE SCH ×2 (09:55→21:17)
[2021-09-24] MEDS: Lidocaine PATCH 5% PATCH TRANSDERM SCH (10:06)
[2021-09-24] MEDS: Magnesium Hydroxide LIQ 30 ML UDC PO SCH ×2 (10:08→21:17)
[2021-09-24] MEDS: Amoxicillin/Clavul 875/125 TAB (Augmentin 875 tab) PO SCH ×2 (13:51→20:49)
[2021-09-24] MEDS: Oral Rinse (Biotene)(NF) 237 ML or 473 ML ORAL RINSE BTL MT SCH (20:52)
[2021-09-24] MEDS: Pantoprazole VIAL 40 MG VIAL IV SCH (21:17)
[2021-09-25 06:05] LABS: ABS Eosinophils 0.1 10^3/ul (0-0.6); ABS Lymphocytes 0.7 10^3/ul (1.0-4.8); ABS Monocytes 0.3 10^3/ul (0-0.8); ABS Neutrophils 3.1 10^3/ul (1.5-7.7); Hematocrit 35 % (35-47); Hemoglobin 11.6 g/dL (12.0-16.0); Lymphocyte % 16.1 %; Mean Corpuscular HGB Conc 33 g/dL (31-36); Mean Corpuscular Hemoglobin 27 pg (27-31); Mean Corpuscular Volume 82 fL (80-97); Mean Platelet Volume 6.9 fL (7.4-10.4); Nucleated Red Blood Cells % 0.1; Platelet Count 175 10^3/uL (150-450); Red Cell Distribution Width 14 % (10-15); White Blood Count 4.2 10^3/uL (3.5-10.8)
[2021-09-25 06:21] LABS: Calcium 8.7 mg/dL (8.6-10.3); Magnesium 2.1 mg/dL (1.9-2.7); Potassium 4.1 mmol/L (3.5-5.0); eGFR CKD-EPI 89.8 (>60)
[2021-09-25] MEDS: FLUTICAS/UMECLI/VILANT 100-62.5-25 MDI (NF) INH SCH (06:59)
[2021-09-25] MEDS: Fluorometholone 0.1% OPTH.SUS 5 ML BTL RIGHT EYE SCH ×2 (08:37→20:04)
[2021-09-25] MEDS: Lidocaine PATCH 5% PATCH TRANSDERM SCH (08:37)
[2021-09-25] MEDS: Amoxicillin/Clavul 875/125 TAB (Augmentin 875 tab) PO SCH ×2 (08:38→19:46)
[2021-09-25] MEDS: Heparin 5000 UNITS/ML 1 mL VIAL SUBCUT SCH (08:40)
[2021-09-25] MEDS: Aspirin EC 81 mg TAB.EC (enteric coated) PO SCH (08:40)
[2021-09-25] MEDS: Enoxaparin 40 MG/0.4 ML SYR SUBCUT SCH (18:02)
[2021-09-25] MEDS: Pantoprazole VIAL 40 MG VIAL IV SCH (20:05)
[2021-09-26] MEDS: FLUTICAS/UMECLI/VILANT 100-62.5-25 MDI (NF) INH SCH (08:09)
[2021-09-26] MEDS: Fluorometholone 0.1% OPTH.SUS 5 ML BTL RIGHT EYE SCH ×2 (09:27→21:42)
[2021-09-26] MEDS: Lidocaine PATCH 5% PATCH TRANSDERM SCH (09:27)
[2021-09-26] MEDS: Aspirin EC 81 mg TAB.EC (enteric coated) PO SCH (09:28)
[2021-09-26] MEDS: Amoxicillin/Clavul 875/125 TAB (Augmentin 875 tab) PO SCH ×2 (09:29→21:41)
[2021-09-26] MEDS: Enoxaparin 40 MG/0.4 ML SYR SUBCUT SCH (17:27)
[2021-09-26] MEDS: Pantoprazole VIAL 40 MG VIAL IV SCH (21:42)
[2021-09-27] MEDS: FLUTICAS/UMECLI/VILANT 100-62.5-25 MDI (NF) INH SCH (08:25)
[2021-09-27] MEDS: Amoxicillin/Clavul 875/125 TAB (Augmentin 875 tab) PO SCH (09:23)
[2021-09-27] MEDS: Aspirin EC 81 mg TAB.EC (enteric coated) PO SCH (09:24)
[2021-09-27] MEDS: Fluorometholone 0.1% OPTH.SUS 5 ML BTL RIGHT EYE SCH (09:25)
[2021-09-27] MEDS: Lidocaine PATCH 5% PATCH TRANSDERM SCH (09:26)
[2021-09-27 12:10] VITALS: BP 110/53
== END 2021-09-27 14:20 | DRG 372 ==
LOC: EDHOLD 13:48 → ED 13:48 → EDHOLD 22:04 → MEDTELE 22:08 → SUATTDRO 09-23 15:35 → MED 09-25 20:20
PROVIDERS: ADMIT Surgery; ATTEND Internal Medicine

== ENCOUNTER 2024-01-09 16:28 | Observation (INO) ==
[2024-01-09 17:30] LABS: ABS Eosinophils 0.1 10^3/uL (0.0-0.5); ABS Lymphocytes 0.9 10^3/uL (1.0-4.8); ABS Monocytes 0.5 10^3/uL (0.0-0.9); ABS Neutrophils 4.6 10^3/uL (1.5-7.6); Eosinophil % 1.8 %; Hematocrit 40.6 % (35-45); Hemoglobin 13.9 g/dL (11.5-14.3); Lymphocyte % 15.1 %; Mean Corpuscular Hemoglobin 29.6 pg (27-33); Mean Corpuscular Hgb Conc 34.3 g/dL (31-36); Mean Corpuscular Volume 86.3 fL (80-97); Mean Platelet Volume 7.2 fL (7.5-11.2); Nucleated Red Blood Cells % 0.1 %/100WBC (0.0-0.8); Platelet Count 185 10^3/uL (150-450); Red Blood Count 4.71 10^6/uL (3.63-4.92); Red Cell Distribution Width 13.3 % (12-17); White Blood Count 6.1 10^3/uL (3.8-11.8)
[2024-01-09 17:40] LABS: INR 1.01 (0.85-1.14)
[2024-01-09 18:23] LABS: Albumin 3.9 g/dL (3.2-5.2); Albumin/Globulin Ratio 1.6 (1-3); Calcium 9.1 mg/dL (8.6-10.3); Creatinine, Serum 0.86 mg/dL (0.51-0.95); Globulin 2.4 g/dL (2-4); Potassium 4.5 mmol/L (3.5-5.0); Total Bilirubin 0.4 mg/dL (0.2-1.0); Total Protein 6.3 g/dL (6.4-8.9); eGFR CKD-EPI 67.8 (>60)
[2024-01-09 18:46] LABS: High Sensitivity Troponin 1 Hr 5 pg/mL (<15)
[2024-01-09 19:04] LABS: C Reactive Protein 7.73 mg/L (<8.01); Magnesium 2.1 mg/dL (1.9-2.7)
[2024-01-09] MEDS: oxyCODONE/Acetamin 5/325 mg TAB PO PRN (20:55)
[2024-01-09] MEDS: Potassium Chlor 20 meq TAB.ER PO SCH (20:55)
[2024-01-09] MEDS: Enoxaparin 40 MG/0.4 ML SYR SUBCUT SCH (22:31)
[2024-01-10 06:40] LABS: ABS Eosinophils 0.1 10^3/uL (0.0-0.5); ABS Lymphocytes 1.1 10^3/uL (1.0-4.8); ABS Monocytes 0.5 10^3/uL (0.0-0.9); Eosinophil % 2.3 %; Hematocrit 38.1 % (35-45); Hemoglobin 13.5 g/dL (11.5-14.3); Lymphocyte % 23.4 %; Mean Corpuscular Hemoglobin 30.3 pg (27-33); Mean Corpuscular Hgb Conc 35.3 g/dL (31-36); Mean Corpuscular Volume 85.8 fL (80-97); Mean Platelet Volume 7.1 fL (7.5-11.2); Platelet Count 170 10^3/uL (150-450); Red Blood Count 4.45 10^6/uL (3.63-4.92); Red Cell Distribution Width 13.2 % (12-17); White Blood Count 4.7 10^3/uL (3.8-11.8)
[2024-01-10 06:57] LABS: Calcium 8.7 mg/dL (8.6-10.3); Creatinine, Serum 0.85 mg/dL (0.51-0.95); Magnesium 2.2 mg/dL (1.9-2.7); Potassium 4.4 mmol/L (3.5-5.0); eGFR CKD-EPI 68.8 (>60)
[2024-01-10] MEDS: CMC:FLUTICAS/UMECLI/VILANT 100-62.5-25 MDI (NF) INH SCH (08:27)
[2024-01-10] MEDS: Aspirin EC 81 mg TAB.EC (enteric coated) PO SCH (10:11)
[2024-01-10] MEDS: DULoxetine DR 60 mg CAP PO SCH (10:11)
[2024-01-10 10:31] LABS: Body Fluid Appearance Bloody; Body Fluid Color Red; Body Fluid Source Pleural Fluid
[2024-01-10] MEDS: Albuterol HFA INHALER 8 gm MDI INH PRN (10:34)
[2024-01-10 10:53] LABS: Body Fluid Total Nucleated 3239 /mcL
[2024-01-10 11:29] LABS: Body Fluid Mono 22 %; Body Fluid Other Cells 42; Body Fluid Total Cells Counted 200
[2024-01-10] MEDS ORDERED: Enoxaparin 40 MG/0.4 ML SYR SUBCUT SCH (21:00)
[2024-01-10] MEDS: Iohexol 300 (CONTRAST) 10 ML SDV IV ONE (21:27)
[2024-01-11] MEDS: Iohexol 350 (CONTRAST) 500 ML MDV IV ONE (00:50)
[2024-01-11 09:51] VITALS: BP 113/66
[2024-01-11] MEDS ORDERED: Enoxaparin 40 MG/0.4 ML SYR SUBCUT SCH (18:00)
[2024-01-12 10:41] LABS: Fluid Type, Protein, Total PLEURAL FLUID; Glucose, BF 93 mg/dL; Total Protein, BF 4.2 g/dL
[2024-01-12 15:46] LABS: Lactate Dehydrogenase, BF 441 U/L
== END 2024-01-11 14:15 | disposition home health service (06) ==
LOC: ED 16:28 → EDHOLD 16:28 → SUATTDRO 18:40 → MED 21:16
PROVIDERS: ADMIT Student in an Organized Health Care Education/Training Program; ATTEND Internal Medicine

== ENCOUNTER 2024-02-22 15:52 | Inpatient (IN) ==
[2024-02-22 16:24] LABS: ABS Basophils 0.1 10^3/uL (0.0-0.1); ABS Lymphocytes 0.7 10^3/uL (1.0-4.8); ABS Monocytes 0.6 10^3/uL (0.0-0.9); ABS Neutrophils 7.4 10^3/uL (1.5-7.6); Eosinophil % 0.3 %; Hematocrit 40.5 % (35-45); Hemoglobin 13.8 g/dL (11.5-14.3); Lymphocyte % 7.8 %; Mean Corpuscular Hemoglobin 28.9 pg (27-33); Mean Corpuscular Hgb Conc 34.1 g/dL (31-36); Mean Corpuscular Volume 84.7 fL (80-97); Mean Platelet Volume 6.9 fL (7.5-11.2); Platelet Count 352 10^3/uL (150-450); Red Blood Count 4.78 10^6/uL (3.63-4.92); Red Cell Distribution Width 14.5 % (12-17); White Blood Count 8.7 10^3/uL (3.8-11.8)
[2024-02-22 16:35] LABS: INR 1.13 (0.85-1.14)
[2024-02-22 16:50] LABS: Albumin 3.2 g/dL (3.5-5.7); Albumin/Globulin Ratio 1.2 (1-3); Calcium 8.9 mg/dL (8.6-10.3); Creatinine, Serum 1.8 mg/dL (0.51-0.95); Globulin 2.7 g/dL (2-4); Potassium 4.3 mmol/L (3.5-5.0); Total Bilirubin 0.5 mg/dL (0.2-1.0); Total Protein 5.9 g/dL (6.4-8.9)
[2024-02-22 17:55] LABS: High Sensitivity Troponin 1 Hr 13 pg/mL (<15)
[2024-02-22] MEDS ORDERED: ALBUTEROL SULFATE 0.63 MG/3 ML INH PRN (20:17)
[2024-02-22] MEDS ORDERED: oxyCODONE/Acetamin 5/325 mg TAB PO PRN (20:17)
[2024-02-22] MEDS: Potassium Chlor 20 meq TAB.ER PO SCH (21:33)
[2024-02-23] MEDS: NS 0.9% 1000 ml BAG 1,000 ML IV SCH (00:07)
[2024-02-23 05:23] LABS: ABS Basophils 0.1 10^3/uL (0.0-0.1); ABS Eosinophils 0.1 10^3/uL (0.0-0.5); ABS Lymphocytes 0.6 10^3/uL (1.0-4.8); ABS Monocytes 0.6 10^3/uL (0.0-0.9); ABS Neutrophils 4.9 10^3/uL (1.5-7.6); ABS Nucleated RBC 0.01 10^3/ul; Eosinophil % 1.4 %; Hematocrit 35.7 % (35-45); Hemoglobin 12.4 g/dL (11.5-14.3); Lymphocyte % 9.9 %; Mean Corpuscular Hemoglobin 29.3 pg (27-33); Mean Corpuscular Hgb Conc 34.6 g/dL (31-36); Mean Corpuscular Volume 84.7 fL (80-97); Mean Platelet Volume 6.9 fL (7.5-11.2); Nucleated Red Blood Cells % 0.1 %/100WBC (0.0-0.8); Platelet Count 279 10^3/uL (150-450); Red Blood Count 4.21 10^6/uL (3.63-4.92); Red Cell Distribution Width 14.1 % (12-17); White Blood Count 6.2 10^3/uL (3.8-11.8)
[2024-02-23 06:38] LABS: Calcium 8.3 mg/dL (8.6-10.3); Creatinine, Serum 1.64 mg/dL (0.51-0.95); Magnesium 2.7 mg/dL (1.9-2.7); Potassium 4.5 mmol/L (3.5-5.0); eGFR CKD-EPI 31.3 (>60)
[2024-02-23] MEDS: DULoxetine DR 60 mg CAP PO SCH (07:39)
[2024-02-23] MEDS: Aspirin EC 81 mg TAB.EC (enteric coated) PO SCH (07:39)
[2024-02-23] MEDS: Albuterol 2.5mg/3 ml (0.083%) NEB.SOLN INH PRN (07:39)
[2024-02-23] MEDS: Ondansetron 4 mg VIAL 2 MG/ML 2 ml VIAL IV PRN ×2 (07:51→14:49)
[2024-02-23] MEDS: Prochlorperazine 5 mg/ml 2 ml VIAL (10 mg) IV PRN (16:15)
[2024-02-23] MEDS: CMCS:FLUTICAS/UMECLI/VILANT 100-62.5-25 MDI (NF) INH SCH (16:19)
[2024-02-23] MEDS: Albuterol HFA INHALER 8 gm MDI INH PRN (20:18)
[2024-02-23] MEDS: Enoxaparin 40 MG/0.4 ML SYR SUBCUT SCH (20:24)
[2024-02-24 00:59] LABS: PCO2 Arterial 46 mmHg (35-45); PO2 Arterial 74 mmHg (80-100)
[2024-02-24] MEDS: Iodixanol 320 (CONTRAST) 100 ML SDV IV ONE (05:19)
[2024-02-24] MEDS: Morphine 2 MG/ML SYRINGE IV ONE (07:30)
[2024-02-24] MEDS: Lidocaine 2% PF 5 ML VIAL ONE (09:51)
[2024-02-24] MEDS: Morphine 2 MG/ML SYRINGE ONE (09:51)
[2024-02-24] MEDS ORDERED: Sulfur Hexaflouride MICROSPHR 25 MG VIAL IV PRN (13:46)
[2024-02-25 05:29] LABS: ABS Eosinophils 0.1 10^3/uL (0.0-0.5); ABS Lymphocytes 0.5 10^3/uL (1.0-4.8); ABS Monocytes 0.4 10^3/uL (0.0-0.9); ABS Neutrophils 5.3 10^3/uL (1.5-7.6); Eosinophil % 1.2 %; Hematocrit 33.4 % (35-45); Hemoglobin 11.6 g/dL (11.5-14.3); Lymphocyte % 7.3 %; Mean Corpuscular Hemoglobin 29.5 pg (27-33); Mean Corpuscular Hgb Conc 34.7 g/dL (31-36); Mean Corpuscular Volume 85.1 fL (80-97); Mean Platelet Volume 6.9 fL (7.5-11.2); Platelet Count 252 10^3/uL (150-450); Red Blood Count 3.93 10^6/uL (3.63-4.92); Red Cell Distribution Width 14.4 % (12-17); White Blood Count 6.3 10^3/uL (3.8-11.8)
[2024-02-25 06:20] LABS: Calcium 6.5 mg/dL (8.6-10.3); Creatinine, Serum 1.24 mg/dL (0.51-0.95); Magnesium 2.2 mg/dL (1.9-2.7); Potassium 3.5 mmol/L (3.5-5.0); eGFR CKD-EPI 43.7 (>60)
[2024-02-25] MEDS: Morphine 2 MG/ML SYRINGE IV ONE (12:30)
[2024-02-25] MEDS: Ondansetron ODT 4 mg TAB 4 MG TAB SL PRN (17:08)
[2024-02-26 06:22] LABS: ABS Lymphocytes 0.5 10^3/uL (1.0-4.8); ABS Monocytes 0.4 10^3/uL (0.0-0.9); ABS Neutrophils 6.1 10^3/uL (1.5-7.6); Eosinophil % 0.3 %; Hematocrit 35.4 % (35-45); Hemoglobin 12.1 g/dL (11.5-14.3); Lymphocyte % 7.2 %; Mean Corpuscular Hemoglobin 28.5 pg (27-33); Mean Corpuscular Volume 83.7 fL (80-97); Mean Platelet Volume 6.9 fL (7.5-11.2); Platelet Count 284 10^3/uL (150-450); Red Blood Count 4.23 10^6/uL (3.63-4.92); Red Cell Distribution Width 14.1 % (12-17); White Blood Count 7.1 10^3/uL (3.8-11.8)
[2024-02-26 07:12] LABS: Calcium 7.5 mg/dL (8.6-10.3); Creatinine, Serum 1.22 mg/dL (0.51-0.95); Magnesium 2.5 mg/dL (1.9-2.7); Potassium 3.9 mmol/L (3.5-5.0); eGFR CKD-EPI 44.6 (>60)
[2024-02-27 06:58] LABS: ABS Basophils 0.1 10^3/uL (0.0-0.1); ABS Eosinophils 0.1 10^3/uL (0.0-0.5); ABS Lymphocytes 0.4 10^3/uL (1.0-4.8); ABS Monocytes 0.4 10^3/uL (0.0-0.9); ABS Neutrophils 6.5 10^3/uL (1.5-7.6); Hematocrit 35.9 % (35-45); Hemoglobin 12.3 g/dL (11.5-14.3); Mean Corpuscular Hemoglobin 29.1 pg (27-33); Mean Corpuscular Hgb Conc 34.3 g/dL (31-36); Mean Corpuscular Volume 84.8 fL (80-97); Platelet Count 274 10^3/uL (150-450); Red Blood Count 4.23 10^6/uL (3.63-4.92); Red Cell Distribution Width 14.3 % (12-17); White Blood Count 7.5 10^3/uL (3.8-11.8)
[2024-02-27 07:19] LABS: Calcium 7.5 mg/dL (8.6-10.3); Creatinine, Serum 1.35 mg/dL (0.51-0.95); Magnesium 2.4 mg/dL (1.9-2.7); eGFR CKD-EPI 39.5 (>60)
[2024-02-27] MEDS: Dexamethasone IV 4 MG/ML VIAL 1 ml VIAL IV SLOW PU ONE (10:42)
[2024-02-27] MEDS: Famotidine IV 10 MG/ML 2 ml VIAL (20 mg) IV ONE (10:43)
[2024-02-27] MEDS: PACLITAXEL IVPB ONE (11:35)
[2024-02-27] MEDS: NS 0.9% IVPB ONE (11:35)
[2024-02-27] MEDS: Furosemide 20 mg/2 ml IV VIAL IV SLOW PU ONE (15:07)
[2024-02-28 06:06] LABS: ABS Lymphocytes 0.2 10^3/uL (1.0-4.8); ABS Monocytes 0.3 10^3/uL (0.0-0.9); Hematocrit 35.7 % (35-45); Hemoglobin 12.2 g/dL (11.5-14.3); Lymphocyte % 2.6 %; Mean Corpuscular Hemoglobin 28.6 pg (27-33); Mean Corpuscular Hgb Conc 34.1 g/dL (31-36); Mean Corpuscular Volume 83.9 fL (80-97); Mean Platelet Volume 7.2 fL (7.5-11.2); Platelet Count 305 10^3/uL (150-450); Red Blood Count 4.26 10^6/uL (3.63-4.92); Red Cell Distribution Width 14.2 % (12-17); White Blood Count 7.5 10^3/uL (3.8-11.8)
[2024-02-28 06:45] LABS: Calcium 7.3 mg/dL (8.6-10.3); Creatinine, Serum 1.41 mg/dL (0.51-0.95); Potassium 3.9 mmol/L (3.5-5.0); eGFR CKD-EPI 37.5 (>60)
[2024-02-28] MEDS: Morphine 2 MG/ML SYRINGE IV PRN (10:08)
[2024-02-29 06:55] LABS: Calcium 7.3 mg/dL (8.6-10.3); Creatinine, Serum 1.53 mg/dL (0.51-0.95)
[2024-02-29] MEDS: Morphine 2 MG/ML SYRINGE IV ONE (08:41)
[2024-02-29 13:52] LABS: Anion Gap 10 mmol/L (2-16); Blood Urea Nitrogen 34 mg/dL (6-24); CO2 Carbon Dioxide 27 mmol/L (22-32); Calcium 7.2 mg/dL (8.6-10.3); Chloride 95 mmol/L (101-111); Creatinine, Serum 1.59 mg/dL (0.51-0.95); Glucose 114 mg/dL (70-100); Sodium 132 mmol/L (135-145); eGFR CKD-EPI 32.4 (>60)
[2024-02-29] MEDS: Lactated Ringers 1000 ml BAG 500 ML IV ONE (14:58)
[2024-02-29] MEDS: Enoxaparin 40 MG/0.4 ML SYR SUBCUT SCH (16:13)
[2024-03-01 05:59] LABS: ABS Eosinophils 0.1 10^3/uL (0.0-0.5); ABS Lymphocytes 0.4 10^3/uL (1.0-4.8); ABS Monocytes 0.1 10^3/uL (0.0-0.9); ABS Neutrophils 8.5 10^3/uL (1.5-7.6); Hematocrit 33.3 % (35-45); Hemoglobin 11.5 g/dL (11.5-14.3); Mean Corpuscular Hemoglobin 28.9 pg (27-33); Mean Corpuscular Hgb Conc 34.5 g/dL (31-36); Mean Platelet Volume 7.5 fL (7.5-11.2); Platelet Count 197 10^3/uL (150-450); Red Blood Count 3.96 10^6/uL (3.63-4.92); Red Cell Distribution Width 14.3 % (12-17)
[2024-03-01 06:21] LABS: Calcium 7.1 mg/dL (8.6-10.3); Creatinine, Serum 2.31 mg/dL (0.51-0.95); Potassium 4.3 mmol/L (3.5-5.0); eGFR CKD-EPI 20.7 (>60)
[2024-03-01] MEDS: Lactated Ringers 1000 ml BAG 1,000 ML IV ONE (09:48)
[2024-03-01] MEDS ORDERED: Polyethylene Glycol 3350 17 GM PACKET PO PRN (09:58)
[2024-03-01] MEDS ORDERED: Senna TAB 8.6 mg TAB PO PRN (09:58)
[2024-03-01] MEDS: Enoxaparin 30 MG/0.3 ML SYR SUBCUT SCH ×2 (11:55→18:24)
[2024-03-01] MEDS: Albuterol 2.5mg/3 ml (0.083%) NEB.SOLN INH PRN (14:34)
[2024-03-01 15:34] LABS: Calcium 7.1 mg/dL (8.6-10.3); Creatinine, Serum 2.47 mg/dL (0.51-0.95); Potassium 4.3 mmol/L (3.5-5.0); eGFR CKD-EPI 19.1 (>60)
[2024-03-01] MEDS: Magnesium Hydroxide LIQ 30 ML UDC PO SCH (19:23)
[2024-03-02] MEDS: Lactated Ringers 1000 ml BAG 1,000 ML IV ONE ×3 (03:37→14:21)
[2024-03-02] MEDS ORDERED: Lactated Ringers 1000 ml BAG 1,000 ML IV SCH (04:00)
[2024-03-02 05:10] LABS: Creatinine, Serum 2.97 mg/dL (0.51-0.95); Potassium 4.7 mmol/L (3.5-5.0); eGFR CKD-EPI 15.3 (>60)
[2024-03-02] MEDS: Magnesium Hydroxide LIQ 30 ML UDC PO PRN (07:40)
[2024-03-02 08:28] LABS: Magnesium 2.2 mg/dL (1.9-2.7)
[2024-03-02 10:04] LABS: Osmolality Serum 291 mOsm/kg (275-295)
[2024-03-02 11:35] LABS: Urine Chloride Concentration < 22 mmol/L; Urine Potassium Concentration 45.3 mmol/L; Urine Sodium Concentration < 18 mmol/L
[2024-03-02 12:03] LABS: Urine Osmo 352 mOsm/kg (150-1150)
[2024-03-02 13:24] LABS: Calcium 7.2 mg/dL (8.6-10.3); Creatinine, Serum 3.17 mg/dL (0.51-0.95); Magnesium 2.5 mg/dL (1.9-2.7); Phosphorus 6.4 mg/dL (2.5-5.0); Potassium 4.8 mmol/L (3.5-5.0); eGFR CKD-EPI 14.2 (>60)
[2024-03-02] MEDS: Albumin Human 5% 12.5 GM/250 ML BTL IV ONE (17:37)
[2024-03-02 21:09] VITALS: BP 88/58
[2024-03-02] MEDS: Glycopyrrolate IV 0.2 MG/ML 1 ML VIAL IV SLOW PU ONE (21:15)
[2024-03-02] MEDS: Morphine 4 MG/ML VIAL (1 ml) IV SCH (21:15)
[2024-03-02] MEDS: Midazolam 2 mg/2 ml VIAL 1 mg/ml 2 ml VIAL (2 mg) IV SLOW PU PRN ×2 (21:49→23:30)
[2024-03-02] MEDS: Morphine 2 MG/ML SYRINGE IV PRN (22:18)
[2024-03-03] MEDS: Morphine 10 MG/ML VIAL (1 mL) 100 MG in NS 0.9% 100 ml BAG 90 ML IV SCH (00:25)
[2024-03-03] MEDS: Atropine 1% (ORAL/SL) 15 ML BTL SL PRN (01:14)
[2024-03-03] MEDS: HYDROmorphone 1 MG/1 ML SYRINGE IV SLOW PU PRN ×2 (01:35→03:05)
[2024-03-03] MEDS: Midazolam 2 mg/2 ml VIAL 1 mg/ml 2 ml VIAL (2 mg) ONE (02:20)
[2024-03-03] MEDS ORDERED: Lorazepam PYXIS KEY PRN (03:21)
[2024-03-03] MEDS ORDERED: LORazepam 2 mg VIAL 1 ml IV PUSH PRN ×2 (03:21→03:30)
[2024-03-03] MEDS: Midazolam 5 mg/5 ml VIAL 1 mg/ml 5 ml VIAL (5 mg) IV SLOW PU ONE (03:43)
[2024-03-03] MEDS: Midazolam 5 mg/5 ml VIAL 1 mg/ml 5 ml VIAL (5 mg) ONE (06:26)
== END 2024-03-03 03:43 | disposition expired | DRG 597 ==
LOC: EDHOLD 15:52 → ED 15:52 → MEDTELE 02-23 10:08 → SUATTDRO 02-23 14:14 → MED 02-23 17:48 → ICU 02-24 01:42 → MED 02-25 18:22 → ICU 03-02 19:41
PROVIDERS: ADMIT Internal Medicine; ATTEND Internal Medicine Critical Care Medicine